=== PATIENT | female | born 1975 | race Hispanic/Latino ===

== ENCOUNTER 2018-08-08 08:43 | Outpatient (CLI) | payer OTHER ==
--- NOTE | 2018-08-08 09:50 | ULT ---
ULTRASOUND WITH DOPPLER DUPLEX VENOUS LOWER EXTREMITY LEFT: DATE: 08-08-18 HISTORY: 43-year-old female with left lower extremity swelling. TECHNIQUE: Color flow Doppler, spectral waveform analysis of pulsed Doppler, and jara-scale imaging with bharat nirali and augmentation, were used to evaluate the left common femoral, femoral, popliteal, posterior t ibial, and superficial femoral, veins; and the proximal portions of the profunda femoral and greater saphenous, veins. FINDINGS: In the left greater saphenous vein approximately 3 cm caudal to the knee, there is an approximately 2 x 1.5 cm lobular mass with mixed echogenicity representing a thrombosed varicosity which communicate s with, or is part of, the greater saphenous vein. There is no blood flow within this. There is blood flow in the segment of greater saphenous vein slightly cranial to it. There is no thrombosis of the greater saphenous vein in the thigh. There is no deep vein thrombosis in the left common femoral, profunda femoral, femoral, popliteal or posterior tibial veins. IMPRESSION: 1. Positive for superficial venous thrombosis involving a varicosity associated with the left greater saphenous vein distal to the knee. 2. No thrombosis in the deep venous system. LORI Arcos POS: DORCAS
== END 2018-08-08 08:44 | disposition home or self-care (01) ==
LOC: SCSULT 08:43
PROVIDERS: ATTEND Family Medicine
DX: M79.89 Other specified soft tissue disorders (principal); I82.4Z2 Acute embolism and thrombosis of unspecified deep veins of left distal lower extremity

== ENCOUNTER 2020-01-16 17:27 | Emergency (ER) | payer OTHER, SELFPAY ==
[~2020-01-16 17:27] MED LIST: Iopamidol 370 76% 100 ML VIAL ONE
[2020-01-16 18:04] LABS: Bilirubin Negative (Negative); Blood, Urine Negative (Negative); Clarity Clear (Clear); Glucose, Urine (Dipstick) Normal (Negative); Ketone, Urine Negative (Negative); Leukocyte Negative Leu/uL (Negative); Nitrite Negative (Negative); Protein, Urine (Dipstick) Negative (Neg-Trace); Specific Gravity, Urine 1.022 (1.002-1.036); Urobilinogen Normal mg/dL (Less than 2); pH, Urine 5.5 (5.0-9.0)
[2020-01-16 18:48] LABS: #Eosinphils 0.5 thou/uL (0.0-0.7); #Lymphocytes 1.2 thou/uL (1.20-3.40); #Monocytes 0.5 thou/uL (0.11-0.59); #Neutrophils 8.9 thou/uL (1.40-6.50); %Eosinophils 4.4 % (0.0-10.0); %Monocytes 4.5 % (0.0-10.0); Hemoglobin 13.2 g/dL (12.0-16.0); Mean Corpuscular HGB CONC 33.6 g/dL (32.0-36.0); Mean Corpuscular Hemoglobin 28.4 pg (27.0-31.0); Mean Corpuscular Volume 84.6 fL (78.0-98.0); Mean Platelet Volume 8.4 fL (7.4-10.4); Platelet Count 286 thou/uL (130-400); RBC Distribution Width 13.5 % (11.5-14.5); Red Blood Cell (RBC) Count 4.64 mill/uL (4.20-5.40); White Blood Cell (WBC) Count 11.1 thou/uL (4.8-10.8)
[2020-01-16 18:57] LABS: BHCG - Serum Negative (NEGATIVE); Pregs Control Background? CLEAR/WHITE (CLR/WHITE); Pregs Control Bar Appear? YES (CONTROL BAR)
[2020-01-16 19:09] LABS: ALT (SGPT) 24 U/L (8-55); AST (SGOT) 19 U/L (5-34); Albumin 4.3 g/dL (3.5-5.0); Alkaline Phosphatase 84 U/L (40-110); Anion Gap 16 mmol/L (10-20); BUN (Urea Nitrogen) 12 mg/dL (7.0-18.7); Bilirubin, Total 0.5 mg/dL (0.2-1.2); Calc. Creatinine Clearance 0 mL/min (70-130); Calcium 9.7 mg/dL (7.8-10.44); Carbon Dioxide 24 mmol/L (22-29); Chloride 102 mmol/L (98-107); Estimated GFR-MDRD 83; Globulin 3.9 g/dL (2.4-3.5); Glucose 149 mg/dL (70-105); Lipase 19 U/L (8-78); Potassium 3.9 mmol/L (3.5-5.1); Protein, Total 8.2 g/dL (6.0-8.3); Sodium 138 mmol/L (136-145)
[2020-01-16] MEDS ORDERED: Ondansetron PF 4 MG/2 ML Vial ONE (20:53)
--- NOTE | 2020-01-16 21:43 | CT ---
CT OF THE ABDOMEN AND PELVIS WITH IV CONTRAST INDICATION: Upper abdominal pain COMPARISON: None FINDINGS: ABDOMEN: Lung bases: Clear Liver: Fatty liver with enlargement. The liver measures 22 cm in its greatest craniocaudad dimensions . Gallbladder: Cholelithiasis Pancreas: Normal. Adrenal glands: There is enlargement of the left adrenal gland measuring 2.7 cm. Right adrenal gland is normal-appearing. Spleen: Enlarged measuring 15.6 cm Kidneys and ureters: There is a 3 mm nonobstructing calculus within the upper pole of the left kidney . Right kidney is normal-appearing. Vasculature: Normal. Lymph nodes:No lymphadenopathy. Free fluid in abdomen:No free fluid is evident. PELVIS: Small and large bowel: Colonic diverticulosis. The bowel is of normal caliber. Appendix:Normal Bladder: Normal. Rectal and perirectal soft tissues:Normal. Reproductive structures: There is a 2.1 cm hypodensity involving the anterior lower uterine segment. Adnexa appear within normal limits. Free fluid in pelvis: No free fluid is evident. Lymphadenopathy pelvis: No lymphadenopathy is evident. Osseous structures: No acute osseous abnormality. No destructive osteolytic or osteoblastic lesion i s identified. There is scattered degenerative and osteoarthritic changes. Soft tissues:Normal. IMPRESSION: 1. Fatty infiltration of the liver and hepatosplenomegaly. 2. Left adrenal nodule incompletely characterized. Follow-up nonemergent CT the abdomen utilizing a a drenal mass protocol is recommended. 3. Cholelithiasis 4. Left nephrolithiasis 5. Colonic diverticulosis 6. anterior lower uterine segment hypodense lesion suspicious for an intramural fibroid versus a prom inent nabothian cyst. Nonemergent follow-up pelvic ultrasound is recommended for additional characterization.
--- NOTE | 2020-01-16 22:20 | ULT ---
RIGHT UPPER QUADRANT ULTRASOUND CLINICAL HISTORY: Epigastric abdominal pain with nausea vomiting diarrhea. COMPARISON: CT the abdomen and pelvis with contrast dated January 16, 2020 at 9:30 PM FINDINGS: Liver:The liver is diffusely hyperechoic and enlarged measuring 19 cm. There is a 3.5 cm hypoechoic r egion, adjacent to the caudate lobe, suspicious for a region of focal fatty sparing. Intrahepatic bile ducts: No intrahepatic or extrahepatic biliary dilation.; Common bile duct: 3.6 mm. Gallbladder: Numerous stones within the gallbladder. The gallbladder wall measures 2.2 mm. No pericho lecystic fluid is evident. Mckeon's sign:Positive Main portal vein:Patent with hepatopedal flow. Pancreas:Not well seen due to overlying bowel gas and the patient's body habitus Right kidney: Right kidney measures 10.7 x 4.4 x 4.9 cm. No focal renal lesion or hydronephrosis. Additional findings: None. IMPRESSION: Cholelithiasis with reportedly positive sonographic Mckeon's sign. Findings are quite typical for acu te calculus cholecystitis on this right upper quadrant ultrasound. If clinical concern persists, HIDA scan may be helpful for additional evaluation. Hepatomegaly with fatty infiltration and an area of focal fatty sparing suspected near the caudate lo be.
== END 2020-01-16 22:25 | disposition home or self-care (01) ==
LOC: ERS 17:27
DX: K80.21 Calculus of gallbladder without cholecystitis with obstruction (principal); N20.0 Calculus of kidney; E11.9 Type 2 diabetes mellitus without complications; F17.210 Nicotine dependence, cigarettes, uncomplicated; Z79.899 Other long term (current) drug therapy
CPT/HCPCS: 36415; 74177; 76705; 80053; 81003; 83605; 83690; 84703; 85025; 96361; 96374; J2405; Q9967

== ENCOUNTER 2020-07-12 18:10 | Emergency (ER) | payer OTHER ==
[2020-07-12 19:07] LABS: #Eosinphils 0.3 thou/uL (0.0-0.7); #Lymphocytes 2.4 thou/uL (1.20-3.40); #Monocytes 0.5 thou/uL (0.11-0.59); #Neutrophils 3.9 thou/uL (1.40-6.50); %Basophils 0.3 % (0.0-1.0); %Eosinophils 3.9 % (0.0-10.0); %Lymphocytes 33.8 % (21.0-51.0); Hemoglobin 12.4 g/dL (12.0-16.0); Mean Corpuscular Hemoglobin 28.8 pg (27.0-31.0); Mean Corpuscular Volume 84.9 fL (78.0-98.0); Mean Platelet Volume 8.5 fL (7.4-10.4); Platelet Count 283 thou/uL (130-400); RBC Distribution Width 12.9 % (11.5-14.5); Red Blood Cell (RBC) Count 4.31 mill/uL (4.20-5.40); White Blood Cell (WBC) Count 7.1 thou/uL (4.8-10.8)
[2020-07-12 20:05] LABS: Bacteria/HPF None Seen HPF (None Seen); Bilirubin Negative (Negative); Blood, Urine 2+ (Negative); Clarity Clear (Clear); Glucose, Urine (Dipstick) Normal (Negative); Ketone, Urine Negative (Negative); Leukocyte Negative Leu/uL (Negative); Nitrite Negative (Negative); Protein, Urine (Dipstick) Negative (Neg-Trace); Specific Gravity, Urine 1.009 (1.002-1.036); Squamous Epithelial 0-3 HPF (0-3); Urobilinogen Normal mg/dL (Less than 2); WBC/HPF 0-3 HPF (0-3)
--- NOTE | 2020-07-12 20:16 | ULT ---
Exam: Pelvic ultrasound HISTORY: Vaginal bleeding in . COMPARISON: 02/10/2020 TECHNIQUE: Multiple grayscale and color Doppler images were obtained in a transvaginal pelvic ultraso und. Spectral analysis of the Doppler waveforms of the ovaries were performed. FINDINGS: CERVIX: Nabothian cysts are seen including large nabothian cyst measuring approximately 2.8 cm. This was also seen on prior exam. UTERUS AND ENDOMETRIUM: There is a fluid collection seen in the endometrial canal which does contain a pole. Cardiac Doppler does demonstrates heart tones with a heart rate of 170 bpm. The crown-rump length measures 2.36 cm corresponding to gestational age by ultrasound of 9 weeks . No subchorionic hemorrhage is evident on provided images. No free fluid is present. RIGHT OVARY: Not able to be visualized. LEFT OVARY:Not well assessed, but what is thought to be the left ovary does appear normal in appearan ce. Given position of the ovary, Doppler evaluation is difficult to perform IMPRESSION: 1. Single intrauterine gestation with heart tones documented. Estimated gestational age by michelle urement of the crown-rump length is 9 weeks. 2. Limited assessment of the bilateral ovaries related to positioning of the ovaries and adjacent adn exal bowel gas. 3. Prominent nabothian cyst.
== END 2020-07-12 20:55 | disposition home or self-care (01) ==
LOC: ERS 18:10
DX: O20.9 Hemorrhage in early pregnancy, unspecified (principal); O24.911 Unspecified diabetes mellitus in pregnancy, first trimester; O99.331 Smoking (tobacco) complicating pregnancy, first trimester; Z3A.01 Less than 8 weeks gestation of pregnancy
CPT/HCPCS: 36415; 76856; 81003; 81015; 84702; 85025; 86900; 86901

== ENCOUNTER 2020-10-04 23:41 | Emergency (ER) | payer OTHER ==
[2020-10-05 00:34] LABS: #Basophils 0.1 thou/uL (0.0-0.2); #Eosinphils 0.2 thou/uL (0.0-0.7); #Lymphocytes 3.1 thou/uL (1.20-3.40); #Monocytes 0.6 thou/uL (0.11-0.59); #Neutrophils 3.7 thou/uL (1.40-6.50); %Basophils 0.9 % (0.0-1.0); %Eosinophils 3.2 % (0.0-10.0); %Lymphocytes 40.5 % (21.0-51.0); %Monocytes 7.4 % (0.0-10.0); %Neutrophils 48.1 % (42.0-75.0); Hemoglobin 11.3 g/dL (12.0-16.0); Mean Corpuscular HGB CONC 33.7 g/dL (32.0-36.0); Mean Corpuscular Volume 83.1 fL (78.0-98.0); Mean Platelet Volume 8.4 fL (7.4-10.4); Platelet Count 275 thou/uL (130-400); RBC Distribution Width 13.4 % (11.5-14.5); Red Blood Cell (RBC) Count 4.04 mill/uL (4.20-5.40); White Blood Cell (WBC) Count 7.6 thou/uL (4.8-10.8)
[2020-10-05 00:55] LABS: ALT (SGPT) 29 U/L (8-55); AST (SGOT) 19 U/L (5-34); Albumin 3.9 g/dL (3.5-5.0); Alkaline Phosphatase 69 U/L (40-110); Anion Gap 15 mmol/L (10-20); BUN (Urea Nitrogen) 12 mg/dL (7.0-18.7); Bilirubin, Total 0.4 mg/dL (0.2-1.2); Calc. Creatinine Clearance 0 mL/min (70-130); Calcium 8.8 mg/dL (7.8-10.44); Carbon Dioxide 21 mmol/L (22-29); Chloride 108 mmol/L (98-107); Globulin 3.1 g/dL (2.4-3.5); Glucose 98 mg/dL (70-105); Potassium 4.1 mmol/L (3.5-5.1); Sodium 140 mmol/L (136-145)
[2020-10-05] MEDS ORDERED: Iopamidol-370 76% 500 ML 1 ML ONE (09:44)
== END 2020-10-05 05:36 | disposition home or self-care (01) ==
LOC: ERS 23:41
DX: R07.9 Chest pain, unspecified (principal); E11.9 Type 2 diabetes mellitus without complications; Z79.84 Long term (current) use of oral hypoglycemic drugs
CPT/HCPCS: 36415; 71045; 71275; 80053; 84484; 85025; 85379; 93005; Q9967

== ENCOUNTER 2021-09-09 12:09 | Outpatient (CLI) | payer OTHER ==
[2021-09-09 13:27] LABS: #Eosinphils 0.3 10x3/uL (0.0-0.5); #Monocytes 0.5 10x3/uL (0.0-1.1); #Neutrophils 5.3 10x3/uL (1.5-8.4); %Basophils 0.5 % (0.0-2.0); %Eosinophils 3.4 % (0.0-6.0); %Lymphocytes 28.5 % (18.0-47.0); %Monocytes 5.7 % (0.0-10.0); %Neutrophils 61.3 % (40.0-75.0); Hemoglobin 11.6 g/dL (12.0-15.5); Mean Corpuscular HGB CONC 32.2 g/dL (32.0-36.0); Mean Corpuscular Hemoglobin 26.4 pg (27.0-33.0); Mean Corpuscular Volume 81.8 fl (81.6-98.3); Mean Platelet Volume 11.2 fl (7.4-10.4); Platelet Count 323 10x3/uL (150-450); RBC Distribution Width 14.7 % (11.5-14.5); White Blood Cell (WBC) Count 8.7 10x3/uL (3.5-10.5)
[2021-09-09 13:50] LABS: ALT (SGPT) 22 U/L (8-55); AST (SGOT) 13 U/L (5-34); Albumin 4.1 g/dL (3.5-5.0); Alkaline Phosphatase 79 U/L (40-110); Anion Gap 15 mmol/L (10-20); BUN (Urea Nitrogen) 13 mg/dL (7.0-18.7); Bilirubin, Total 0.4 mg/dL (0.2-1.2); Calc. Creatinine Clearance 0 mL/min (70-130); Calcium 9.2 mg/dL (7.8-10.44); Carbon Dioxide 20 mmol/L (22-29); Chloride 105 mmol/L (98-107); Globulin 3.4 g/dL (2.4-3.5); Glucose 138 mg/dL (70-105); Potassium 4.1 mmol/L (3.5-5.1); Protein, Total 7.5 g/dL (6.0-8.3); Sodium 136 mmol/L (136-145)
[2021-09-09 23:54] LABS: SARS-CoV-2 PCR by NAA Not Detected (NotDetected)
== END 2021-09-09 12:10 | disposition home or self-care (01) ==
LOC: LABBT 12:09
PROVIDERS: ATTEND Specialist
DX: Z01.818 Encounter for other preprocedural examination (principal); K80.20 Calculus of gallbladder without cholecystitis without obstruction; Z20.822 Contact with and (suspected) exposure to COVID-19
CPT/HCPCS: 80053; 85025; 93005; 93010; U0003; U0005

== ENCOUNTER 2021-09-14 06:40 | Day surgery (SDC) | payer OTHER ==
[2021-09-07 12:17] VITALS: BMI 51.2
[2021-09-14] MEDS ORDERED: Acetaminophen 500 MG TAB ONE (08:06)
[2021-09-14] MEDS ORDERED: Ketorolac Tromethamine 30 MG/ML VIAL ONE (08:06)
[2021-09-14] MEDS ORDERED: ceFAZolin 2 GM/Dextrose 50 ML IVPB ONE (08:20)
[2021-09-14] MEDS ORDERED: Bupivacaine 0.25% HCL 30 ML VIAL ONE (08:27)
[2021-09-14] MEDS ORDERED: Xylocaine 1% w/ Epi 1:100K 10 ML VIAL ONE (08:27)
[2021-09-14] MEDS ORDERED: Fentanyl 250 MCG/5 ML VIAL ONE ×2 (08:28→11:09)
[2021-09-14] MEDS ORDERED: Midazolam HCl 2 mg/2 ml Vial ONE (08:41)
[2021-09-14] MEDS ORDERED: Labetalol HCl 100 MG/20 ML VIAL ONE (09:00)
[2021-09-14] MEDS ORDERED: Lidocaine 1% PF 5 ML VIAL ONE (09:00)
[2021-09-14] MEDS ORDERED: PROPOFOL 200 MG/20 ML VIAL ONE (09:00)
[2021-09-14] MEDS ORDERED: Esmolol 100 MG/10 ML VIAL ONE (09:00)
[2021-09-14] MEDS ORDERED: Rocuronium Bromide 10 MG/ML (10ML VIAL) ONE (09:00)
[2021-09-14] MEDS ORDERED: Glycopyrrolate 0.2 MG/ML 5 ML SYRINGE ONE (09:00)
[2021-09-14] MEDS ORDERED: Ondansetron PF 4 MG/2 ML Vial ONE (09:00)
[2021-09-14] MEDS ORDERED: Dexamethasone 20 MG/5 ML VIAL ONE (09:00)
[2021-09-14] MEDS ORDERED: HYDROcodone/Acetaminophen 5/325 mg Tablet ONE (12:24)
== END 2021-09-14 13:35 | disposition home or self-care (01) ==
LOC: SDC 06:40
PROVIDERS: ATTEND Specialist
PROC: 0FT44ZZ Resection of Gallbladder, Percutaneous Endoscopic Approach (ICD-10-PCS; principal; 2021-09-14)
DX: K80.10 Calculus of gallbladder with chronic cholecystitis without obstruction (principal); E11.9 Type 2 diabetes mellitus without complications; E78.00 Pure hypercholesterolemia, unspecified; F17.210 Nicotine dependence, cigarettes, uncomplicated; E66.01 Morbid (severe) obesity due to excess calories; Z68.43 Body mass index [BMI] 50.0-59.9, adult; Z79.84 Long term (current) use of oral hypoglycemic drugs; Z79.899 Other long term (current) drug therapy
CPT/HCPCS: 36416; 88304; C1713; J0690; J1100; J1885; J2250; J2405; J2704; J3010; S0020

== ENCOUNTER 2023-08-14 07:29 | Outpatient (CLI) | payer OTHER | END 2023-08-14 07:30 | disposition home or self-care (01) | LOC: SCSMRI 07:29 | PROVIDERS: ATTEND Family Medicine | DX: E27.8 Other specified disorders of adrenal gland (principal) | CPT/HCPCS: 74183 ==

== ENCOUNTER 2023-08-27 08:11 | Emergency (ER) | payer OTHER ==
[2023-08-27 08:51] LABS: Bilirubin Negative (Negative); Blood, Urine Negative (Negative); CAUTI Indications for Culture Pelvic or flank pain; Clarity Clear (Clear); Glucose, Urine (Dipstick) Normal (Negative); Ketone, Urine Negative (Negative); Leukocyte 25 Leu/uL (Negative); Nitrite Negative (Negative); Protein, Urine (Dipstick) Negative (Neg-Trace); RBC/HPF 0-3 HPF (0-3); Specific Gravity, Urine 1.019 (1.002-1.036); Urobilinogen Normal mg/dL (Less than 2); WBC/HPF 0-3 HPF (0-3); pH, Urine 5.5 (5.0-9.0)
[2023-08-27 08:54] LABS: #Eosinphils 0.3 thou/uL (0.0-0.7); #Monocytes 0.4 thou/uL (0.11-0.59); #Neutrophils 3.8 thou/uL (1.40-6.50); %Basophils 0.3 % (0.0-1.0); %Eosinophils 4.3 % (0.0-10.0); %Lymphocytes 29.5 % (21.0-51.0); %Monocytes 6.8 % (0.0-10.0); %Neutrophils 58.5 % (42.0-75.0); Hematocrit 35.1 % (36.0-47.0); Hemoglobin 11.4 g/dL (12.0-16.0); Mean Corpuscular HGB CONC 32.5 g/dL (32.0-36.0); Mean Corpuscular Hemoglobin 26.6 pg (27.0-31.0); Mean Corpuscular Volume 81.8 fl (78.0-98.0); Mean Platelet Volume 10.7 fL (7.4-10.4); Platelet Count 281 10x3/uL (130-400); RBC Distribution Width 14.4 % (11.5-14.5); Red Blood Cell (RBC) Count 4.29 mill/uL (4.20-5.40); White Blood Cell (WBC) Count 6.5 10x3/uL (4.8-10.8)
[2023-08-27] MEDS ORDERED: Ketorolac Tromethamine 30 MG (1 mL) VIAL ONE (08:59)
[2023-08-27] MEDS ORDERED: Dicyclomine 20 MG/2 ML VIAL ONE (09:11)
[2023-08-27 09:13] LABS: ALT (SGPT) 12 U/L (8-55); AST (SGOT) 11 U/L (5-34); Albumin 3.9 g/dL (3.5-5.0); Alkaline Phosphatase 73 U/L (40-110); Anion Gap 12 mmol/L (10-20); BUN (Urea Nitrogen) 8 mg/dL (7.0-18.7); Bilirubin, Total 0.6 mg/dL (0.2-1.2); Calc. Creatinine Clearance 0 mL/min (70-130); Calcium 9.2 mg/dL (7.8-10.44); Carbon Dioxide 26 mmol/L (22-29); Chloride 105 mmol/L (98-107); Estimated GFR 104; Globulin 3.6 g/dL (2.4-3.5); Glucose 101 mg/dL (70-105); Lipase 55 U/L (8-78); Potassium 3.6 mmol/L (3.5-5.1); Protein, Total 7.5 g/dL (6.0-8.3); Sodium 139 mmol/L (136-145)
[2023-08-27 09:14] LABS: Bacteria/HPF 1+ HPF (None Seen)
[2023-08-27 09:15] LABS: Urine Culture Reflex No No
[2023-08-27 09:20] LABS: Pregnancy Test - Urine (BHCG) Negative (Negative); Pregu Control Background? CLEAR/WHITE (CLR/WHITE); Pregu Control Bar Appear? YES (CONTROL BAR); Specific Gravity 1.019 (1.002-1.036)
[2023-08-27] MEDS ORDERED: Iopamidol-370 76% 500 ML MDV (1 ML CHARGE) ONE (15:37)
== END 2023-08-27 10:43 | disposition home or self-care (01) ==
LOC: ERS 08:11
DX: K57.32 Diverticulitis of large intestine without perforation or abscess without bleeding (principal); N20.0 Calculus of kidney; N28.89 Other specified disorders of kidney and ureter; R82.71 Bacteriuria; E11.9 Type 2 diabetes mellitus without complications; F17.210 Nicotine dependence, cigarettes, uncomplicated; Z79.4 Long term (current) use of insulin; Z79.84 Long term (current) use of oral hypoglycemic drugs; Z79.899 Other long term (current) drug therapy
CPT/HCPCS: 74177; 80053; 81001; 81025; 83605; 83690; 85025; 96372; 96374; J1885; Q9967

== ENCOUNTER 2024-01-29 06:21 | Emergency (ER) | payer OTHER, SELFPAY ==
[2024-01-29] MEDS ORDERED: Ketorolac Tromethamine 30 MG (1 mL) VIAL ONE (07:13)
[2024-01-29] MEDS ORDERED: Acetaminophen 500 MG TAB ONE (07:13)
[2024-01-29] MEDS ORDERED: diphenhydrAMINE 50 MG/ML VIAL ONE (07:13)
[2024-01-29] MEDS ORDERED: Metoclopramide HCl 10 MG (2 mL) VIAL ONE (07:13)
[2024-01-29] MEDS ORDERED: Magnesium 2 GM/50 ML BAG (IN WATER) ONE (08:15)
[2024-01-29 08:31] LABS: Influenza A by NAA Not Detected (NotDetected); Influenza B by NAA Not Detected (NotDetected); SARS-CoV-2 NAA Rapid Test Not Detected (NotDetected)
== END 2024-01-29 09:15 | disposition home or self-care (01) ==
LOC: ERS 06:21
DX: R51.9 Headache, unspecified (principal); E11.9 Type 2 diabetes mellitus without complications; I10 Essential (primary) hypertension; F17.210 Nicotine dependence, cigarettes, uncomplicated; E78.5 Hyperlipidemia, unspecified; Z79.84 Long term (current) use of oral hypoglycemic drugs; Z79.899 Other long term (current) drug therapy
CPT/HCPCS: 96365; 96375; J1200; J1885; J2765; J3475

== ENCOUNTER 2024-05-24 01:34 | Emergency (ER) | payer OTHER ==
[2024-05-24] MEDS ORDERED: Ondansetron PF 4 MG/2 ML Vial ONE (02:02)
[2024-05-24 02:14] LABS: #Basophils 0.04 10x3/uL (0.0-0.2); %Basophils 0.4 % (0.0-1.0); %Eosinophils 2.8 % (0.0-10.0); %Lymphocytes 22.4 % (21.0-51.0); %Monocytes 6.1 % (0.0-10.0); %Neutrophils 67.7 % (42.0-75.0); Hematocrit 34.3 % (36.0-47.0); Hemoglobin 11.5 g/dL (12.0-16.0); Mean Corpuscular HGB CONC 33.5 g/dL (32.0-36.0); Mean Corpuscular Hemoglobin 27.2 pg (27.0-31.0); Mean Corpuscular Volume 81.1 fL (78.0-98.0); Mean Platelet Volume 10.3 fL (7.4-10.4); Platelet Count 324 10x3/uL (130-400); RBC Distribution Width 14.6 % (11.5-14.5); Red Blood Cell (RBC) Count 4.23 mill/uL (4.20-5.40)
[2024-05-24] MEDS ORDERED: Morphine 4 MG/ML VIAL ONE (02:22)
[2024-05-24 02:24] LABS: ALT (SGPT) 10 U/L (8-55); AST (SGOT) 11 U/L (5-34); Albumin 3.6 g/dL (3.5-5.0); Alkaline Phosphatase 76 U/L (40-110); Anion Gap 16 mmol/L (10-20); BUN (Urea Nitrogen) 17 mg/dL (7.0-18.7); Bilirubin, Total 0.5 mg/dL (0.2-1.2); Calc. Creatinine Clearance 0 mL/min (70-130); Calcium 9.1 mg/dL (7.8-10.44); Carbon Dioxide 21 mmol/L (22-29); Chloride 104 mmol/L (98-107); Estimated GFR 64; Globulin 4.4 g/dL (2.4-3.5); Glucose 129 mg/dL (70-105); Lipase 53 U/L (8-78); Potassium 3.8 mmol/L (3.5-5.1); Sodium 137 mmol/L (136-145)
[2024-05-24 02:32] LABS: Bacteria/HPF None Seen HPF (None Seen); Bilirubin Negative (Negative); Blood, Urine Trace (Negative); CAUTI Indications for Culture Pelvic or flank pain; Clarity Turbid (Clear); Glucose, Urine (Dipstick) Normal (Negative); Ketone, Urine Negative (Negative); Leukocyte 25 Leu/uL (Negative); Nitrite Negative (Negative); Protein, Urine (Dipstick) 20 mg/dL (Neg-Trace); Specific Gravity, Urine 1.024 (1.002-1.036); Urobilinogen Normal mg/dL (Less than 2); pH, Urine 5.5 (5.0-9.0)
[2024-05-24 02:33] LABS: Urine Culture Reflex No No
[2024-05-24 03:46] LABS: Pregnancy Test - Urine (BHCG) Negative (Negative); Pregu Control Background? CLEAR/WHITE (CLR/WHITE); Pregu Control Bar Appear? YES (CONTROL BAR)
[2024-05-24 03:47] LABS: Specific Gravity 1.024 (1.002-1.036)
[2024-05-24] MEDS ORDERED: Ketorolac Tromethamine 30 MG (1 mL) VIAL ONE (04:41)
[2024-05-24 08:09] LABS: Bacteria/HPF None Seen HPF (None Seen); Bilirubin Negative (Negative); Blood, Urine Negative (Negative); CAUTI Indications for Culture Pelvic or flank pain; Clarity Clear (Clear); Glucose, Urine (Dipstick) Normal (Negative); Ketone, Urine Negative (Negative); Leukocyte 25 Leu/uL (Negative); Nitrite Negative (Negative); Protein, Urine (Dipstick) 10 mg/dL (Neg-Trace); Squamous Epithelial 21-50 HPF (0-3); Urobilinogen Normal mg/dL (Less than 2); pH, Urine 5.5 (5.0-9.0)
[2024-05-24 08:11] LABS: Specific Gravity, Urine Greater than 1.060 (1.002-1.036)
[2024-05-24 08:12] LABS: Urine Culture Reflex No No
[2024-05-24] MEDS ORDERED: Iopamidol-370 76% 500 ML MDV (1 ML CHARGE) ONE (12:23)
== END 2024-05-24 08:40 | disposition home or self-care (01) ==
LOC: ERS 01:34
DX: N13.6 Pyonephrosis (principal); E11.9 Type 2 diabetes mellitus without complications; I10 Essential (primary) hypertension; E78.5 Hyperlipidemia, unspecified; F17.210 Nicotine dependence, cigarettes, uncomplicated; Z79.84 Long term (current) use of oral hypoglycemic drugs; Z79.85 Long-term (current) use of injectable non-insulin antidiabetic drugs; Z79.899 Other long term (current) drug therapy
CPT/HCPCS: 36415; 74177; 80053; 81001; 81025; 83605; 83690; 85025; 96361; 96374; 96375; J1885; J2272; J2405